=== PATIENT | male | born 2005 | race Caucasian/White ===

== ENCOUNTER 2025-03-07 19:34 | Emergency (ER) | payer SELFPAY ==
[2025-03-07] MEDS ORDERED: Acetaminophen/HYDROcodone 325-5 MG Tab ONE (20:00)
[2025-03-07] MEDS ORDERED: Cephalexin 500 MG Cap ONE (20:00)
== END 2025-03-07 20:30 | disposition home or self-care (01) ==
LOC: LB.ED 19:34
DX: K02.9 Dental caries, unspecified (principal); F17.210 Nicotine dependence, cigarettes, uncomplicated; Z88.0 Allergy status to penicillin
CPT/HCPCS: 99283; A9270-GY